=== PATIENT | female | born 1955 | race Caucasian/White ===

== ENCOUNTER 2016-05-02 07:00 | Day surgery (SDC) | payer BC ==
[2016-05-02] MEDS ORDERED: PROPOFOL INJ 200 MG/20 ML VIAL IV ONE (07:22)
[2016-05-02 09:22] VITALS: BP 123/86
--- NOTE | 2016-05-02 12:44 | Operative Report ---
Operative Report DATE OF SURGERY: 05/02/16 Operative Report: The risks, benefits and alternatives of the procedure including risks of bleeding, perforation requiring surgery are explained to the patient in detail and informed consent is obtained. Patient is brought back to the endoscopy suite. Patient is placed in a left lateral decubital position. Timeout is called. Propofol medication is administered. A rectal examination is done which did not reveal any masses, tears or fissures. An Olympus video scope was inserted into the patient's rectum. The scope was then gradually advanced all the way to the cecum. The cecum as identified by the usual anatomical landmarks including the ileocecal valve as well as the appendiceal office. Photodocumentation was obtained. The scope is then sequentially pulled back via the various segments of the colon including the ascending colon, hepatic flexure, transverse colon, splenic flexure, descending colon and finally into the rectosigmoid portions of the colon. Retroflexion maneuvers performed. Prep is good. PREOPERATIVE DIAGNOSIS: Blood in stool. Colorectal cancer screening. POSTOPERATIVE DIAGNOSIS: Small sessile polyp in the sigmoid colon that's removed via biopsy forceps. Internal hemorrhoids. No evidence of any obstructive lesion, AVMs, diverticulosis. OPERATION: Colonoscopy with biopsy SURGEON: FROY RAZO ANESTHESIA: LMAC TISSUE REMOVED OR ALTERED: Colon polyp removed COMPLICATIONS: None. ESTIMATED BLOOD LOSS: none. INTRAOPERATIVE FINDINGS: As described above. PROCEDURE: Patient tolerated the procedure well. No immediate postprocedure complications are noted. Patient is discharged in good condition. Discharge date 05/02/2016. Discharge diet: Regular. Discharge activity: Regular. Surveillance colonoscopy in 5 years Patient is instructed to call the office or proceed to the emergency room to any further problems or questions. Patient does have a 2-3 week follow-up to discuss findings. Patient will be contacted if this any unusual findings on her biopsy.
== END 2016-05-02 09:17 | disposition home or self-care (01) ==
LOC: END 07:00
PROVIDERS: ATTEND Internal Medicine Gastroenterology
PROC: 0DBN8ZX Excision of Sigmoid Colon, Via Natural or Artificial Opening Endoscopic, Diagnostic (ICD-10-PCS; principal; 2016-05-02 08:30)
DX: D12.5 Benign neoplasm of sigmoid colon (principal); K64.8 Other hemorrhoids; K62.5 Hemorrhage of anus and rectum; I10 Essential (primary) hypertension; E78.5 Hyperlipidemia, unspecified; G54.0 Brachial plexus disorders; Z79.899 Other long term (current) drug therapy; Z88.0 Allergy status to penicillin
CPT/HCPCS: 45380; 88305 ×2; J2704; 810

== ENCOUNTER → 2020-04-15 | Outpatient (CLI) | payer MEDICARE ==
[~2020-04-15] MED LIST: LIDOCAINE 2% INJ (20 MG/ML) 20 ML MDV ONE
--- NOTE | 2020-04-15 09:28 | WOMENS IMAGING REPORT ---
EXAM DESCRIPTION: U/S BREAST UNILAT LIMITED IMAGES COMPLETED DATE/TIME: 04/15/2020 9:04 am REASON FOR STUDY: N63.24 N63.24 UNSPECIFIED LUMP IN THE LEFT BREAST, LOWER INNER QUAD COMPARISON: None. TECHNIQUE: Real-time and static grayscale imaging performed of the left breast targeted to the area of clinical/mammographic concern. Selected color Doppler images recorded. LIMITATIONS: None. FINDINGS: Patient originally scheduled for ultrasound-guided biopsy of lesion reported from ultrasou nd performed at outside facility. There is a well-circumscribed nodule in the lower inner quadrant about 11 cm deep identified on [facility] [place] mammogram from a different outside facility. Report from that exam indicated no prior mammogram . In fact there are priors; I have compared the current screening to prior screening from 2019 from a 3 rd outside facility. There is no change. 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 BIRAD: 3 Probably benign finding. Initial short-interval follow-up suggested. RECOMMENDATION: RECOMMENDED FOLLOW-UP: Six-month left diagnostic mammogram and ultrasound if indicat ed. COMMENT: The [employer] ([employer]) has developed recommendations for screening MRI of the breasts in certain patient populations, to be used in conjunction with mammography. Breast MRI s urveillance may be appropriate for women with more than 20% lifetime risk of developing breast cancer as determined by genetic testing, significant family history of the disease, or history of mantle r adiation for Hodgkins Disease. [employer] Practice Guidelines 2007. TECHNICAL DOCUMENTATION: JOB ID: [id number] 2010 [employer]- All Rights Reserved Reading location - IP/workstation name: [email or web address]
== END ==
LOC: WI 08:00 → RAD 08:37 → EDSTATUS 09:08
PROVIDERS: ATTEND Family Medicine
DX: N63.24 Unspecified lump in the left breast, lower inner quadrant (principal)
CPT/HCPCS: 76642; J3490